=== PATIENT | male | born 2000 | race Native Hawaiian/Other Pacific Islander ===

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

== ENCOUNTER 2020-04-05 21:13 | Emergency (ER) | payer OTHER ==
[2020-04-05] MEDS ORDERED: IBUPROFEN ORAL SUSP 100 MG/5 ML CUP PO STA (21:42)
[2020-04-05] MEDS ORDERED: ACETAMINOPHEN ORAL SUSP 160 MG/5 ML CUP PO STA (21:42)
--- NOTE | 2020-04-05 21:51 | ED ---
Fever HPI - General Chief Complaint: Fever Stated Complaint: Wants COVID Test Time Seen by Provider: 04/05/20 21:34 Source: patient Mode of arrival: ambulatory - History of Present Illness Initial Comments: 19-year-old male patient presents to the emergency department today for evaluation of fever. Patient states he's had fever for the last 3 days. He is also reporting cough and mild sore throat. States his temperature has been as high as 104F. States he has not taken any medication because he has a difficult time swallowing pills. He denies any nausea, vomiting, constipation, diarrhea. Denies a loss of taste or smell. Denies abdominal pain. Denies any urinary symptoms. He does not believes been exposed to COVID-19. Has not had flu vaccine this season. Patient denies any recent rash, shortness of breath, chest pain, back pain, numbness, tingling, dizziness, weakness, hematuria, dysuria, urinary urgency, urinary frequency, headache, visual changes, or any o ther complaints. - Related Data Previous Rx's Medication Instructions Recorded Acetaminophen Oral Susp [Tylenol] 650 mg PO Q6H PRN #400 ml 04/05/20 Azithromycin [Zithromax] 250 mg PO DAILY #25 susp.recon 04/05/20 Ibuprofen Oral Susp [Motrin Oral 600 mg PO Q6H PRN #400 ml 04/05/20 Susp] Allergies Allergy/AdvReac Type Severity Reaction Status Date / Time No Known Allergies Allergy Verified 03/08/19 00:45 Review of Systems ROS Statement: Those systems with pertinent positive or pertinent negative responses have been documented in the HPI. ROS Other: All systems not noted in ROS Statement are negative. Past Medical History Past Medical History: No Reported History History of Any Multi-Drug Resistant Organisms: None Reported Past Surgical History: No Surgical Hx Reported Past Psychological History: No Psychological Hx Reported Smoking Status: Never smoker Past Alcohol Use History: None Reported Past Drug Use History: None Reported General Exam General appearance: alert, in no apparent distress, other (This is a well- developed, well-nourished adult male patient in no acute distress. Vital signs upon presentation temperature 101.1F, pulse 1:30, respirations 20, blood pressure 138/97, pulse ox 97% on room air.) Eye exam: Present: normal appearance, PERRL, EOMI. Absent: scleral icterus, conjunctival injection, periorbital swelling ENT exam: Present: mucous membranes moist, TM's normal bilaterally. Absent: normal oropharynx (Pharyngeal erythema. No tonsillar hypertrophy or exudate noted.) Neck exam: Present: normal inspection, full ROM. Absent: tenderness, meningismus, lymphadenopathy Respiratory exam: Present: normal lung sounds bilaterally. Absent: respiratory distress, wheezes, rales, rhonchi, stridor Cardiovascular Exam: Present: normal rhythm, tachycardia, normal heart sounds. Absent: systolic murmur, diastolic murmur, rubs, gallop, clicks GI/Abdominal exam: Present: soft, normal bowel sounds. Absent: distended, tenderness, guarding, rebound, rigid Neurological exam: Present: alert, oriented X3, CN II-XII intact Psychiatric exam: Present: normal affect, normal mood Skin exam: Present: warm, dry, intact, normal color. Absent: rash Course Vital Signs 04/05/20 04/05/20 04/05/20 21:26 21:31 23:37 Temperature 101.1 F H 101.3 F H Pulse Rate 130 H 110 H Respiratory 20 19 18 Rate Blood Pressure 138/97 124/75 O2 Sat by Pulse 97 98 Oximetry Medical Decision Making - Medical Decision Making 19-year-old male patient presented to the emergency department today for evaluation of fever and cough. Patient states his been sick for the last 2-3 days. Physical examination revealed clear equal lung sounds. Chest x-ray did reveal right upper lobe pneumonia. Oxygen saturation is normal. He was febrile 101.3F. Patient did deny taking any medication for his fever. We did give liquid medications as he has difficulty taking pills. Started him on a azithromycin for possible bacterial pneumonia. His COVID-19 swab was pending. He'll be discharged to follow-up with his primary care physician for recheck in 1-2 days. Return parameters were discussed in detail. He verbalizes understanding and agrees with this plan. - Lab Data Lab Results 04/05/20 Range/Units 21:42 Influenza Type A RNA Not Detected (Not Detectd) Influenza Type B (PCR) Not Detected (Not Detectd) - Radiology Data Radiology results: report reviewed, image reviewed One view x-ray of the chest is obtained. Report was reviewed in its entirety. Impression by Dr. Martínez shows right upper lobe pneumonia. Normal heart. Disposition Clinical Impression: Right upper lobe pneumonia Disposition: HOME SELF-CARE Condition: Good Instructions (If sedation given, give patient instructions): Fever in Adults (ED), Community Acquired Pneumonia (ED) Additional Instructions: Take medications as directed. Complete antibiotic prescription in full, even if you are feeling better. Quarantine until you have your COVID-19 results. Follow-up with your primary care physician for recheck in 1-2 days. Return to the emergency department for any new, worsening, or concerning symptoms. Prescriptions: Ibuprofen Oral Susp [Motrin Oral Susp] 600 mg PO Q6H PRN #400 ml PRN Reason: Fever Acetaminophen Oral Susp [Tylenol] 650 mg PO Q6H PRN #400 ml PRN Reason: Fever Azithromycin [Zithromax] 250 mg PO DAILY #25 susp.recon Is patient prescribed a controlled substance at d/c from ED?: No Referrals: None,Stated [Primary Care Provider] - 1-2 days Time of Disposition: 23:27
--- NOTE | 2020-04-05 22:12 | XR ---
EXAMINATION TYPE: XR chest 1V DATE OF EXAM: 04/05/2020 COMPARISON: NONE HISTORY: Cough and fever TECHNIQUE: Single view FINDINGS: There is some airspace pneumonia right upper lobe. The other lung chua are clear. Heart a nd mediastinum are normal. There is no pleural effusion. Bony thorax is intact. IMPRESSION: There is right upper lobe pneumonia. Normal heart.
[2020-04-05] MEDS ORDERED: AZITHROMYCIN 500 MG TAB PO STA (22:19)
[2020-04-05 23:39] VITALS: BP 124/75; PULSE 110; RESP 18; TEMP 101.3
== END 2020-04-05 23:38 | disposition home or self-care (01) ==
LOC: EC 21:13
DX: U07.1 COVID-19 (principal); R00.0 Tachycardia, unspecified; J12.89 Other viral pneumonia
CPT/HCPCS: 87502; 71045; 99283; U0003

== ENCOUNTER 2020-04-09 21:26 | Emergency (ER) | payer OTHER ==
[2020-04-09 21:48] VITALS: BP 116/86
[2020-04-09] MEDS ORDERED: IBUPROFEN 600 MG TAB PO STA (22:18)
[2020-04-09] MEDS ORDERED: SODIUM CHLORIDE 0.9% 1,500 ML IV STA (22:18)
[2020-04-09] MEDS ORDERED: ACETAMINOPHEN TAB 500 MG TAB PO STA (22:18)
[2020-04-09] MEDS ORDERED: IBUPROFEN ORAL SUSP 100 MG/5 ML CUP PO ONE (22:24)
[2020-04-09] MEDS ORDERED: ACETAMINOPHEN ORAL SUSP 160 MG/5 ML CUP PO ONE (22:24)
--- NOTE | 2020-04-09 22:45 | ED ---
General Adult HPI - General Chief complaint: Shortness of Breath Stated complaint: +COVID, SOB/Chest Pain Time Seen by Provider: 04/09/20 21:53 Source: patient Mode of arrival: ambulatory Limitations: no limitations - History of Present Illness Initial comments: 19-year-old male presents to the emergency Department with complaints of increasing shortness of breath and fever. Patient states he was diagnosed with COVID pneumonia 4 days ago and continues to feel poorly. Last dose of Tylenol was 15 hours ago. He endorses decreased appetite but states he is drinking an adequate amount of fluid. Patient denies any recent rash, chest pain, abdominal pain, nausea, vomiting, diarrhea, constipation, back pain, numbness, tingling, dizziness, weakness, hematuria, dysuria, urinary urgency, urinary frequency, headache, visual changes, or any other complaints. - Related Data Previous Rx's Medication Instructions Recorded Acetaminophen Oral Susp [Tylenol] 650 mg PO Q6H PRN #400 ml 04/05/20 Albuterol Sulfate [Proair Hfa] 1 - 2 puff INHALATION Q6HR PRN #1 04/10/20 inhaler Dexamethasone 6 mg PO DAILY #6 tablet 04/10/20 Allergies Allergy/AdvReac Type Severity Reaction Status Date / Time No Known Allergies Allergy Verified 04/09/20 22:18 Review of Systems ROS Statement: Those systems with pertinent positive or pertinent negative responses have been documented in the HPI. ROS Other: All systems not noted in ROS Statement are negative. Past Medical History Past Medical History: No Reported History History of Any Multi-Drug Resistant Organisms: None Reported Past Surgical History: No Surgical Hx Reported Past Psychological History: No Psychological Hx Reported Smoking Status: Never smoker Past Alcohol Use History: None Reported Past Drug Use History: None Reported General Exam Limitations: no limitations (Well-developed, well-nourished male in no acute distress. Initial temperature 99.8F, pulse 118, respirations 20, blood pressure 116/86, pulse ox 95% on room air.) General appearance: alert, in no apparent distress ENT exam: Present: normal exam, mucous membranes moist Respiratory exam: Present: normal lung sounds bilaterally (tachypneic with shallow respirations) Cardiovascular Exam: Present: tachycardia, normal heart sounds GI/Abdominal exam: Present: soft, normal bowel sounds Neurological exam: Present: alert, oriented X3, CN II-XII intact Psychiatric exam: Present: flat affect Skin exam: Present: warm, dry, intact, other (flushed cheeks) Course Vital Signs 04/09/20 04/09/20 04/09/20 21:46 22:48 23:08 Temperature 99.8 F H 104 F H Pulse Rate 118 H Respiratory 20 22 Rate Blood Pressure 116/86 O2 Sat by Pulse 95 Oximetry 04/09/20 04/10/20 04/10/20 23:37 00:05 00:51 Temperature 102.1 F H Pulse Rate 120 H 107 H Respiratory 20 Rate Blood Pressure O2 Sat by Pulse 97 96 Oximetry 04/10/20 01:12 Temperature 99.6 F Pulse Rate 103 H Respiratory Rate Blood Pressure O2 Sat by Pulse Oximetry Medical Decision Making - Medical Decision Making 19-year-old COVID + male presents to the emergency Department with complaints of increasing shortness of breath and fever. Patient appears flushed and reports it has been several hours since his last dose of Tylenol. States he is taking the antibiotic he was prescribed at his previous visit. Patient does endorse poor appetite, but feels as if his fluid intake is adequate. Chest x-ray was obtained and shows diffuse new pulmonary interstitial and airspace edema compared to recent exam. Tylenol and Motrin were given for fever; 1500mls of normal saline for hydration. Temperature improved from 104F to 99.6F and heart rated dropped from 120s to 103. Lab work obtained does show an elevated CRP at 45.9, as well as elevated liver enzymes. Results were discussed with patient. Educated on importance of fever control and proper hydration. Instructed to follow up with his primary care provider for a recheck in 1-2 days. Return parameters were discussed in great detail. Patient verbalizes understanding and agrees with this plan. - Lab Data Result diagrams: 04/09/20 23:15 04/09/20 23:15 Lab Results 04/09/20 04/09/20 Range/Units 23:15 23:15 WBC 4.9 (4.0-11.0) k/uL RBC 6.37 H (4.30-5.90) m/uL Hgb 18.4 H (13.0-17.5) gm/dL Hct 53.0 (39.0-53.0) % MCV 83.2 (80.0-100.0) fL MCH 28.8 (25.0-35.0) pg MCHC 34.6 (31.0-37.0) g/dL RDW 12.2 (11.5-15.5) % Plt Count 193 (150-450) k/uL MPV 6.6 Neutrophils % 66 % Lymphocytes % 22 % Monocytes % 6 % Eosinophils % 0 % Basophils % 3 % Neutrophils # 3.2 (1.3-7.7) k/uL Lymphocytes # 1.1 (1.0-4.8) k/uL Monocytes # 0.3 (0-1.0) k/uL Eosinophils # 0.0 (0-0.7) k/uL Basophils # 0.1 (0-0.2) k/uL Sodium 136 L (137-145) mmol/L Potassium 4.1 (3.5-5.1) mmol/L Chloride 102 (98-107) mmol/L Carbon Dioxide 25 (22-30) mmol/L Anion Gap 9 mmol/L BUN 12 (9-20) mg/dL Creatinine 0.88 (0.66-1.25) mg/dL Est GFR (CKD-EPI)AfAm >90 (>60 ml/min/1.73 sqM) Est GFR (CKD-EPI)NonAf >90 (>60 ml/min/1.73 sqM) Glucose 134 H (74-99) mg/dL Calcium 8.4 (8.4-10.2) mg/dL Total Bilirubin 0.9 (0.2-1.3) mg/dL AST 90 H (17-59) U/L ALT 107 H (4-49) U/L Alkaline Phosphatase 100 (38-126) U/L C-Reactive Protein 45.9 H (<10.0) mg/L Total Protein 7.5 (6.3-8.2) g/dL Albumin 4.2 (3.5-5.0) g/dL - Radiology Data Radiology results: report reviewed One view portable chest x-ray was obtained. Report was reviewed in its entirety. Impression per Dr. Martínez is diffuse new pulmonary interstitial and airspace edema compared to recent exam. Disposition Clinical Impression: Pneumonia due to COVID-19 virus Disposition: HOME SELF-CARE Condition: Good Instructions (If sedation given, give patient instructions): Viral Pneumonia (ED), Shortness of Breath (ED) Additional Instructions: Purchase chewable tylenol and motrin over the counter. 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 Use inhaler as needed. Follow-up through primary care physician for recheck in 1-2 days. Return to the emergency department for any new, worsening, or concerning symptoms. Prescriptions: Dexamethasone 6 mg PO DAILY #6 tablet Albuterol Sulfate [Proair Hfa] 1 - 2 puff INHALATION Q6HR PRN #1 inhaler PRN Reason: Shortness Of Breath Is patient prescribed a controlled substance at d/c from ED?: No Referrals: Saadia Mitchell MD [REFERRING] - 1-2 days Time of Disposition: 01:12
--- NOTE | 2020-04-09 22:53 | XR ---
EXAMINATION TYPE: XR chest 1V portable DATE OF EXAM: 04/09/2020 COMPARISON: 04/05/2020 HISTORY: Short of breath TECHNIQUE: FINDINGS: There is diffuse pulmonary interstitial and airspace edema. There is poor inspiration. Hear t size is fairly normal. Bony thorax is intact. IMPRESSION: There is diffuse new pulmonary interstitial and airspace edema compared to recent exam.
[2020-04-09 23:36] LABS: Basophils # (A) 0.1 k/uL (0-0.2); Basophils % (A) 3 %; Eosinophils % (A) 0 %; HGB 18.4 gm/dL (13.0-17.5); Lymphocytes # (A) 1.1 k/uL (1.0-4.8); Lymphocytes % (A) 22 %; MCH 28.8 pg (25.0-35.0); MCHC 34.6 g/dL (31.0-37.0); MCV 83.2 fL (80.0-100.0); Mean Platelet Volume 6.6; Monocytes # (A) 0.3 k/uL (0-1.0); Monocytes % (A) 6 %; Neutrophils # (A) 3.2 k/uL (1.3-7.7); Neutrophils % (A) 66 %; Platelet Count 193 k/uL (150-450); RBC 6.37 m/uL (4.30-5.90); RDW 12.2 % (11.5-15.5); WBC 4.9 k/uL (4.0-11.0)
[2020-04-09 23:48] LABS: ALT 107 U/L (4-49); AST 90 U/L (17-59); African American GFR (CKD) >90 (>60 ml/min/1.73 sqM); Albumin 4.2 g/dL (3.5-5.0); Alkaline Phosphatase 100 U/L (38-126); Anion Gap 9 mmol/L; Blood Urea Nitrogen 12 mg/dL (9-20); C Reactive Protein 45.9 mg/L (<10.0); Calcium 8.4 mg/dL (8.4-10.2); Carbon Dioxide 25 mmol/L (22-30); Chloride 102 mmol/L (98-107); Glucose 134 mg/dL (74-99); Non-African American GFR(CKD) >90 (>60 ml/min/1.73 sqM); Potassium 4.1 mmol/L (3.5-5.1); Sodium 136 mmol/L (137-145); Total Bilirubin 0.9 mg/dL (0.2-1.3); Total Protein 7.5 g/dL (6.3-8.2)
[2020-04-10 01:12] VITALS: TEMP 99.6
[2020-04-10 01:23] VITALS: PULSE 107; RESP 18
== END 2020-04-10 01:23 | disposition home or self-care (01) ==
LOC: EC 21:26
DX: U07.1 COVID-19 (principal); J12.89 Other viral pneumonia; R00.0 Tachycardia, unspecified
CPT/HCPCS: 36415; 71045; 80053; 85025; 86140; 96360; 99285

== ENCOUNTER 2022-10-06 06:55 | Emergency (ER) | payer OTHER ==
--- NOTE | 2022-10-06 07:59 | ED ---
Upper Extremity HPI - General Chief Complaint: Extremity Injury, Upper Stated Complaint: Right hand injury Time Seen by Provider: 10/06/22 07:29 Source: patient, RN notes reviewed Mode of arrival: ambulatory Limitations: no limitations - History of Present Illness Initial Comments: 21-year-old male presents emergency Department with chief complaint of right hand injury. Patient states that he punched a wall last night. Patient states there is some bruising, swelling of his right hand primarily around his third MCP region. No paresthesias. Patient is right-hand dominant. - Related Data Previous Rx's Medication Instructions Recorded Acetaminophen Oral Susp [Tylenol] 650 mg PO Q6H PRN #400 ml 04/05/20 Albuterol Sulfate [Proair Hfa] 1 - 2 puff INHALATION Q6HR PRN #1 04/10/20 inhaler dexAMETHasone [Dexamethasone] 6 mg PO DAILY #6 tablet 04/10/20 Ibuprofen [Motrin] 600 mg PO Q8HR PRN #20 tab 10/06/22 Allergies Allergy/AdvReac Type Severity Reaction Status Date / Time No Known Allergies Allergy Verified 10/06/22 07:29 Review of Systems ROS Statement: Those systems with pertinent positive or pertinent negative responses have been documented in the HPI. ROS Other: All systems not noted in ROS Statement are negative. Past Medical History Past Medical History: No Reported History History of Any Multi-Drug Resistant Organisms: None Reported Past Surgical History: No Surgical Hx Reported Past Psychological History: No Psychological Hx Reported Smoking Status: Never smoker Past Alcohol Use History: Occasional Past Drug Use History: None Reported General Exam Limitations: no limitations General appearance: alert, in no apparent distress Head exam: Present: atraumatic, normocephalic, normal inspection Neck exam: Present: full ROM Respiratory exam: Present: normal lung sounds bilaterally. Absent: respiratory distress, wheezes, rales, rhonchi, stridor Cardiovascular Exam: Present: regular rate, normal rhythm, normal heart sounds. Absent: systolic murmur, diastolic murmur, rubs, gallop, clicks Extremities exam: Present: other (Right hand ecchymosis over the third MCP region, swelling, tenderness palpation, full range of motion neurovascular intact) Course Vital Signs 10/06/22 07:26 Temperature 99.4 F Pulse Rate 67 Respiratory 18 Rate Blood Pressure 127/81 O2 Sat by Pulse 100 Oximetry Medical Decision Making - Medical Decision Making Was pt. sent in by a medical professional or institution (SHANA Verdugo, BUILDING SUPERVISOR, urgent care, hospital, or residential...) When possible be specific @ -No Did you speak to anyone other than the patient for history (EMS, parent, family, police, friend...)? What history was obtained from this source @ -No Did you review nursing and triage notes (agree or disagree)? Why? @ -I reviewed and agree with nursing and triage notes Were old charts reviewed (outside hosp., previous admission, EMS record, old EKG, old radiological studies, urgent care reports/EKG's, residential records)? Report findings @ -No old charts were reviewed Differential Diagnosis (chest pain, altered mental status, abdominal pain women, abdominal pain men, vaginal bleeding, weakness, fever, dyspnea, syncope, headache, dizziness, GI bleed, back pain, seizure, CVA, palpatations, mental health, musculoskeletal)? @ -hAnd contusion, hand fracture, hand sprain EKG interpreted by me (3pts min.). @ -None X-rays interpreted by me (1pt min.). @ -X-ray 3 view right hand no acute fracture dislocation noted CT interpreted by me (1pt min.). @ -None done U/S interpreted by me (1pt. min.). @ -None done What testing was considered but not performed or refused? (CT, X-rays, U/S, labs)? Why? @ -None What meds were considered but not given or refused? Why? @ -None Did you discuss the management of the patient with other professionals (professionals i.e. SHANA Verdugo, BUILDING SUPERVISOR, lab, RT, psych nurse, social insurance adviser, workplace relations adviser, teacher, tactical intelligence officer, case planner)? Give summary @ -No Was smoking cessation discussed for >3mins.? @ -No Was critical care preformed (if so, how long)? @ -No Were there social determinants of health that impacted care today? How? (Homelessness, low income, unemployed, alcoholism, drug addiction, transportation, low edu. Level, literacy, decrease access to med. care, [facility], rehab)? @ -No Was there de-escalation of care discussed even if they declined (Discuss DNR or withdrawal of care, Hospice)? DNR status @ -No What co-morbidities impacted this encounter? (DM, HTN, Smoking, COPD, CAD, Cancer, CVA, ARF, Chemo, Hep., AIDS, mental health diagnosis, sleep apnea, morbid obesity)? @ -None Was patient admitted / discharged? Hospital course, mention meds given and route, prescriptions, significant lab abnormalities, going to OR and other pertinent info. @ -Discharge patient has a right hand contusion x-rays are negative patient discharged in stable condition return parameters were discussed. Undiagnosed new problem with uncertain prognosis? @ -[No] Drug Therapy requiring intensive monitoring for toxicity (Heparin, Nitro, Insulin, Cardizem)? @ -[No] Were any procedures done? @ -[No] Diagnosis/symptom? @ -[Right hand contusion, sprain] Acute, or Chronic, or Acute on Chronic? @ -[Acute] Uncomplicated (without systemic symptoms) or Complicated (systemic symptoms)? @ -[Uncomplicated] Side effects of treatment? @ -[No] Exacerbation, Progression, or Severe Exacerbation? @ -[No] Poses a threat to life or bodily function? How? (Chest pain, [place], [place], pneumonia, PE, COPD, DKA, ARF, appy, cholecystitis, CVA, Diverticulitis, Homicidal, Suicidal, threat to staff... and all critical care pts) @ -[No] Disposition Clinical Impression: Contusion of right hand, Sprain of right hand Disposition: HOME SELF-CARE Condition: Stable Instructions (If sedation given, give patient instructions): Hand Sprain (ED) Additional Instructions: Please return to the Emergency Department if symptoms worsen or any other concerns. Prescriptions: Ibuprofen [Motrin] 600 mg PO Q8HR PRN #20 tab PRN Reason: Pain Is patient prescribed a controlled substance at d/c from ED?: No Referrals: None,Stated [Primary Care Provider] - 1-2 days Time of Disposition: 08:35
--- NOTE | 2022-10-06 08:26 | XR ---
EXAMINATION TYPE: XR hand complete RT DATE OF EXAM: 10/06/2022 8:07 AM INDICATION: Patient age:Male; 21 years old; Reason for study: pain; COMPARISON: None TECHNIQUE: Frontal, lateral and oblique views of the right hand were obtained. FINDINGS: Third metacarpal phalangeal joint and the metacarpal of the right hand appear within normal limits without displaced fracture. Normal alignment of the visualized joints. No acute osseous path ology is identified. No evidence of soft tissue swelling. IMPRESSION: No acute osseous pathology. If there remains concern consider CT.
[2022-10-06 08:55] VITALS: BP 121/82; PULSE 64; RESP 16; TEMP 97.6
== END 2022-10-06 09:05 | disposition home or self-care (01) ==
LOC: EC 06:55
DX: S63.91XA Sprain of unspecified part of right wrist and hand, initial encounter (principal); W22.01XA Walked into wall, initial encounter
CPT/HCPCS: 99283

== ENCOUNTER 2024-05-31 20:01 | Emergency (ER) | payer OTHER ==
[2024-05-31] MEDS: ACETAMINOPHEN TAB 325 MG TAB PO STA (20:23)
[2024-05-31] MEDS: IBUPROFEN 600 MG TAB PO STA (20:24)
--- NOTE | 2024-05-31 20:45 | ED ---
URI HPI - General Chief Complaint: Upper Respiratory Infection Stated Complaint: congestion sore throat Time Seen by Provider: 05/31/24 20:08 Source: patient Mode of arrival: ambulatory Limitations: no limitations - History of Present Illness Initial Comments: 23-year-old male presenting with chief complaint of flulike symptoms. Is having migraine, sore throat, dry cough, and congestion. Ongoing for about 4 days. He did have a previous positive at home COVID test. States that he does need a work note at this time. He is having no chest pain or difficulty breathing. Some diarrhea. No nausea, vomiting, or abdominal pain. He was previously having a fever but states that this has since subsided. - Related Data Previous Rx's Medication Instructions Recorded Acetaminophen Oral Susp [Tylenol] 650 mg PO Q6H PRN #400 ml 04/05/20 Albuterol Sulfate [Proair Hfa] 1 - 2 puff INHALATION Q6HR PRN #1 04/10/20 inhaler dexAMETHasone [Dexamethasone] 6 mg PO DAILY #6 tablet 04/10/20 Ibuprofen [Motrin] 600 mg PO Q8HR PRN #20 tab 10/06/22 Allergies Allergy/AdvReac Type Severity Reaction Status Date / Time No Known Allergies Allergy Verified 05/31/24 20:06 Review of Systems ROS Statement: Those systems with pertinent positive or pertinent negative responses have been documented in the HPI. ROS Other: All systems not noted in ROS Statement are negative. Past Medical History Past Medical History: No Reported History History of Any Multi-Drug Resistant Organisms: None Reported Past Surgical History: No Surgical Hx Reported Past Psychological History: No Psychological Hx Reported Smoking Status: Never smoker Past Alcohol Use History: Occasional Past Drug Use History: None Reported General Exam Limitations: no limitations General appearance: alert, in no apparent distress Head exam: Present: atraumatic, normocephalic, normal inspection Eye exam: Present: normal appearance, EOMI ENT exam: Present: normal exam, normal oropharynx, mucous membranes moist Neck exam: Present: normal inspection. Absent: meningismus Respiratory exam: Present: normal lung sounds bilaterally. Absent: respiratory distress, wheezes, rales, rhonchi, stridor Cardiovascular Exam: Present: normal rhythm, tachycardia, normal heart sounds. Absent: systolic murmur, diastolic murmur, rubs, gallop, clicks Neurological exam: Present: alert, oriented X3 Psychiatric exam: Present: normal affect, normal mood Skin exam: Present: warm, dry, normal color Course Vital Signs 05/31/24 05/31/24 20:01 21:03 Temperature 97.9 F 98.1 F Pulse Rate 135 H 114 H Respiratory 18 20 Rate Blood Pressure 115/80 121/89 O2 Sat by Pulse 98 98 Oximetry Medical Decision Making - Medical Decision Making Was pt. sent in by a medical professional or institution (SHANA Verdugo, [facility] TECHNICIAN, urgent care, hospital, or shelter...) When possible be specific @ -No Did you speak to anyone other than the patient for history (EMS, parent, family, police, friend...)? What history was obtained from this source @ -No Did you review nursing and triage notes (agree or disagree)? Why? @ -I reviewed and agree with nursing and triage notes Were old charts reviewed (outside hosp., previous admission, EMS record, old EKG, old radiological studies, urgent care reports/EKG's, shelter records)? Report findings @ -No old charts were reviewed Differential Diagnosis (chest pain, altered mental status, abdominal pain women, abdominal pain men, vaginal bleeding, weakness, fever, dyspnea, syncope, headache, dizziness, GI bleed, back pain, seizure, CVA, palpatations, mental health, musculoskeletal)? @ -Differential includes COVID, influenza, RSV, strep throat, not an all- inclusive list EKG interpreted by me (3pts min.). @ -As above X-rays interpreted by me (1pt min.). @ -None done CT interpreted by me (1pt min.). @ -None done U/S interpreted by me (1pt. min.). @ -None done What testing was considered but not performed or refused? (CT, X-rays, U/S, labs)? Why? @ -None What meds were considered but not given or refused? Why? @ -None Did you discuss the management of the patient with other professionals (professionals i.e. SHANA Verdugo, [facility] TECHNICIAN, lab, RT, psych nurse, social science instructor, hand folder, teacher, police officer, field case manager)? Give summary @ -No Was smoking cessation discussed for >3mins.? @ -No Was critical care preformed (if so, how long)? @ -No Were there social determinants of health that impacted care today? How? (Homelessness, low income, unemployed, alcoholism, drug addiction, transportation, low edu. Level, literacy, decrease access to med. care, skilled nursing, rehab)? @ -No Was there de-escalation of care discussed even if they declined (Discuss DNR or withdrawal of care, Hospice)? DNR status @ -No What co-morbidities impacted this encounter? (DM, HTN, Smoking, COPD, CAD, Cancer, CVA, ARF, Chemo, Hep., AIDS, mental health diagnosis, sleep apnea, morbid obesity)? @ -None Was patient admitted / discharged? Hospital course, mention meds given and route, prescriptions, significant lab abnormalities, going to OR and other pertinent info. @ -23-year-old male presenting with chief complaint of migraine, sore throat, cough, congestion. Positive at home COVID test. History and physical examination are conducted. Exam is benign. Patient does not want repeat viral testing. Offered strep testing, patient accepted. Strep test is negative. Patient is requesting a work note. Follow-up with PCP. Report back to ER with any new or worsening symptoms. Discussed return parameters and answered all questions. Patient conveyed verbal understanding and agreed to the plan. I discussed this case in detail with my attending Dr. Montez Undiagnosed new problem with uncertain prognosis? @ -No Drug Therapy requiring intensive monitoring for toxicity (Heparin, Nitro, Insulin, Cardizem)? @ -No Were any procedures done? @ -No Diagnosis/symptom? @ -COVID Acute, or Chronic, or Acute on Chronic? @ -Acute Uncomplicated (without systemic symptoms) or Complicated (systemic symptoms)? @ -Uncomplicated Side effects of treatment? @ -No Exacerbation, Progression, or Severe Exacerbation? @ -No Poses a threat to life or bodily function? How? (Chest pain, [place], [place], pneumonia, PE, COPD, DKA, ARF, appy, cholecystitis, CVA, Diverticulitis, Homicidal, Suicidal, threat to staff... and all critical care pts) @ -Unlikely - Lab Data Lab Results 05/31/24 Range/Units 20:18 Group A Strep (PCR) NOT DETECTED (Not Detectd) Disposition Clinical Impression: COVID-19 Disposition: HOME SELF-CARE Condition: Good Instructions (If sedation given, give patient instructions): COVID-19 (Coronavirus Disease 2019) (ED) Additional Instructions: Follow-up with PCP. Report back to ER with any new or worsening symptoms. Motrin and Tylenol as needed for fever and pain control. Is patient prescribed a controlled substance at d/c from ED?: No Referrals: None,Stated [Primary Care Provider] - 1-2 days Forms: Area PCPs Time of Disposition: 21:07
[2024-05-31 21:03] VITALS: BP 121/89; PULSE 114; RESP 20; TEMP 98.1
== END 2024-05-31 21:11 | disposition home or self-care (01) ==
LOC: EC 20:01
DX: U07.1 COVID-19 (principal)
CPT/HCPCS: 87651; 99283